=== PATIENT | female | born 2000 ===

== ENCOUNTER → 2024-08-18 | Outpatient (CLI) | payer BC ==
[2024-08-20 10:33] LABS: APTIMA MEDIA TYPE Urine; C. TRACHOMATIS BY TMA Negative (Negative); N. GONORRHOEAE BY TMA Negative (Negative); SPECIMEN SOURCE Urine
== END | disposition home or self-care (01) ==
LOC: LAB SHORT 11:49
PROVIDERS: Family Medicine
DX: Z34.01 Encounter for supervision of normal first pregnancy, first trimester (principal)
CPT/HCPCS: 87086; 87491; 87591

== ENCOUNTER → 2024-09-23 | Outpatient (CLI) | payer BC | LOC: LAB SHORT 17:30 → LAB 17:30 | DX: R30.0 Dysuria (principal) | CPT/HCPCS: 87086 ==